=== PATIENT | female | born 1995 | race Caucasian/White ===

== ENCOUNTER → 2017-11-30 | Outpatient (CLI) | payer OTHER ==
--- NOTE | 2017-11-30 11:31 | USB ---
Reason for exam: clinical finding. History: Taking hormonal contraceptives for 2 years. Indicated problem(s): palpable abnormality in the right breast. Physical Findings: Nurse Summary: right breast 1 o'clock at nipple 1 x 1.5cm, tender, movable, 1 o'clock 1 x 1cm, movable, tender (nurse ts). US Breast RT Right complete breast ultrasound includes all four quadrants, the retroareolar region and axilla. Finding demonstrates a 1.3 x 0.8 x 1.2cm oval, solid, hypoechoic lesion at 2 o'clock BB and a 1.7 x 1.0 x 1.7cm oval, solid, hypoechoic lesion at the posterior nipple BB. 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 These results were verbally communicated with the patient and result sheet given to the patient on 11/30/17. ASSESSMENT: Suspicious, BI-RAD 4 RECOMMENDATION: Surgical consultation of the right breast. To consider surgical excision. Otherwise, clinical determination can be made for follow up versus core biopsy. Called with mammographic findings and has scheduled an appointment for the patient for 12/01/17 at 2:[address] Curiel. PRELIMINARY REPORT CALLED AND FAXED TO DR. CURIEL ON 11/30/17.
== END | disposition home or self-care (01) ==
LOC: RADUSWWP 08:50
PROVIDERS: ATTEND Surgery
DX: N63.10 Unspecified lump in the right breast, unspecified quadrant (principal)

== ENCOUNTER → 2017-12-19 | Day surgery (SDC) | payer OTHER ==
[2017-12-19 11:52] VITALS: RESP 16; BMI 21.2
[2017-12-19 13:38] VITALS: BP 99/56; PULSE 52; TEMP 98.6
--- NOTE | 2017-12-19 15:19 | USB ---
EXAMINATION TYPE: US biopsy breast VAD RT DATE OF EXAM: 12/19/2017 CLINICAL HISTORY: N63 Breast lump or mass. TECHNIQUE: Ultrasound guided core biopsy of right breast. COMPARISON: 11/30/2017 FINDINGS: The procedure of ultrasound guided core biopsy was explained to the patient. Benefits, alternatives, and risks were discussed. An informed consent was then obtained. Preprocedural timeout was performed The patient was placed in supine positioning for imaging and for the procedure. The overlying skin was prepped and draped in usual sterile fashion. Lidocaine buffered with bicarbonate was used as anesthetic into the skin and subcutaneous tissue up to the 1.3 x 0.8 x 1.2 cm solid mass at the 2:00 position in the region of the palpable abnormality. The adjacent 1.7 x 1.0 x 1.7 cm retroareolar mass was not biopsied due to its similar echogenicity and morphology. Recommendations for this mass will be made at the time of pathologic /radiologic correlation. Under ultrasound guidance, a 12-gauge vacuum assisted biopsy gun device was used to obtain 3 core samples. A biopsy marker was not left in this mass as it is easily palpable and seen sonographically at the 2:00 position. The patient tolerated the procedure well without any immediate complication. The patient was kept in the radiology department for short stay after the procedure and then discharged home in stable condition. IMPRESSION: Successful, uncomplicated ultrasound guided core biopsy of the 1.3 cm solid mass at the 2:00 position (likely fibroadenoma), full pathology results to follow. Recommendation for the retroareolar mass will be made upon radiologic/pathologic correlation. Pathology Results: Benign RIGHT BREAST LUMP, NEEDLE CORE BIOPSY: Benign breast parenchyma with fibroadenomatoid and fibrocystic changes. Recommendation Follow up ultrasound of the right breast in 6 months. RAFFID
== END | disposition home or self-care (01) ==
LOC: RADUSWWP 11:20
PROVIDERS: ATTEND Surgery
DX: D24.1 Benign neoplasm of right breast (principal); N60.11 Diffuse cystic mastopathy of right breast
CPT/HCPCS: 88305; 19083; J2001

== ENCOUNTER 2020-10-17 11:39 | Emergency (ER) | payer SELFPAY ==
[2020-10-17 11:57] VITALS: BP 112/70; PULSE 83; RESP 16; TEMP 98.4
[2020-10-17] MEDS ORDERED: Rhogam IMMUNE GLOBULIN 1,500 UNIT/1 ML IM ONE (14:10)
--- NOTE | 2020-10-17 14:18 | ED ---
Recheck HPI - General Chief Complaint: Recheck/Abnormal Lab/Rx Stated Complaint: 6wks preg, rhogam shot Time Seen by Provider: 10/17/20 14:04 Source: patient Mode of arrival: ambulatory Limitations: no limitations - History of Present Illness Initial Comments: Patient is a 25-year-old female presenting to emergency Department requesting a RhoGAM injection. Patient states she is currently 6 weeks , was evaluated 2 days ago at another hospital in [place], and was called yesterday stating that her blood type was not checked and she knows she is AB- and they need her to get a Rhogam injection. 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 This is the patient's first . Patient states the vaginal bleeding has been worked up and resolved this morning. She is not having any abdominal pain today, no chest pain or shortness of breath. No fevers or chills. She denies any dysuria. She has no further complaints at this time. - Related Data Home Medications Medication Instructions Recorded Confirmed Non Formulary Drug 1 each PO DAILY 12/05/17 12/19/17 Allergies Allergy/AdvReac Type Severity Reaction Status Date / Time No Known Allergies Allergy Verified 10/17/20 11:53 Review of Systems ROS Statement: Those systems with pertinent positive or pertinent negative responses have been documented in the HPI. ROS Other: All systems not noted in ROS Statement are negative. Past Medical History Past Medical History: No Reported History History of Any Multi-Drug Resistant Organisms: None Reported Past Surgical History: No Surgical Hx Reported Past Anesthesia/Blood Transfusion Reactions: No Reported Reaction Past Psychological History: No Psychological Hx Reported Smoking Status: Never smoker Past Alcohol Use History: None Reported Past Drug Use History: None Reported General Exam - General Exam Comments Initial Comments: GENERAL: Patient is well-developed and well-nourished. Patient is nontoxic and in no acute distress. HEAD: Atraumatic, normocephalic. EYES: Pupils equal round and reactive to light, extraocular movements intact, sclera anicteric, conjunctiva are normal. Eyelids were unremarkable. ENT: TMs normal, nares patent, oropharynx clear without exudates. Moist mucous membranes. NECK: Normal range of motion, supple without lymphadenopathy or JVD. LUNGS: Unlabored respirations. Breath sounds clear to auscultation bilaterally and equal. No wheezes rales or rhonchi. HEART: Regular rate and rhythm without murmurs, rubs or gallops. ABDOMEN: Soft, nontender, normoactive bowel sounds. No guarding, no rebound. No masses appreciated. : Deferred MUSCULOSKELETAL: Normal extremities with adequate strength and normal range of motion, no pitting or edema. No clubbing or cyanosis. NEUROLOGICAL: Patient is alert and oriented x 3. Motor and sensory are also intact. Cranial nerves II through XII grossly intact. Symmetrical smile. Normal speech, normal gait. PSYCH: Normal mood, normal affect. SKIN: Warm, Dry, normal turgor, no rashes or lesions noted. Limitations: no limitations Course Vital Signs 10/17/20 11:53 Temperature 98.4 F Pulse Rate 83 Respiratory 16 Rate Blood Pressure 112/70 O2 Sat by Pulse 100 Oximetry Medical Decision Making - Medical Decision Making Patient is a 25-year-old female here requesting a Rhogam injection. Patient sta michael she was evaluated at a hospital in [place] for vaginal bleeding, she is currently 6 weeks . She states that bleeding has resolved but the hospital called her stating that she needs to get a Rhogam injection. She works as a traveling nurse. Her blood type is AB-. Patient's blood type was confirmed today, she did receive RhoGAM injection. She is stable for discharge. She'll follow-up with her CLIENT RENEWAL SPECIALIST. Case discussed with Dr. Messina. - Lab Data Lab Results 10/17/20 10/17/20 Range/Units 14:20 14:20 Blood Type AB Negative Blood Type Confirm AB Negative Blood Type Recheck No Previous Record Bld Type Recheck Status CABO Indicated Antibody Screen NEGATIVE Spec Expiration Date 10/20/20202319 Disposition Clinical Impression: Vaginal bleeding during Disposition: HOME SELF-CARE Condition: Stable Instructions (If sedation given, give patient instructions): Normal Exam (ED) Additional Instructions: Please return to the Emergency Department if symptoms worsen or any other concerns. Follow-up with your CLIENT RENEWAL SPECIALIST. Is patient prescribed a controlled substance at d/c from ED?: No Referrals: Lemuel Muñoz DO [Primary Care Provider] - 1-2 days
== END 2020-10-17 16:11 | disposition home or self-care (01) ==
LOC: EC 11:39
DX: Z29.13 Encounter for prophylactic Rho(D) immune globulin (principal); O20.9 Hemorrhage in early pregnancy, unspecified; Z3A.01 Less than 8 weeks gestation of pregnancy
CPT/HCPCS: 86900; 86901; 86850; 99283; 96372; J2791

== ENCOUNTER → 2021-01-14 | Outpatient (CLI) | payer OTHER ==
--- NOTE | 2021-01-14 17:30 | US ---
EXAMINATION TYPE: US OB anatomy transabd DATE OF EXAM: 01/14/2021 COMPARISON: NONE HISTORY: Z36 Encounter for screening of mother TECHNIQUE: Transabdominal (TA) EXAM MEASUREMENTS: GESTATIONAL AGE / DATING GESTATIONAL AGE / DATING Physician Established: (19 weeks/4 days) EDC: 06-06-21 Dates by LMP: unknown Dates by First Scan: not available Dates by Current Scan: (19 weeks/6 days) EDC: 06-04-21 Beta HCG (if available): SURVEY IUP: Single PLACENTA: Posterior PREVIA: No Previa DINH: 11.4 cm CERVICAL LENGTH (transabdominal: norm > 3.0cm): 3.0 cm BIOMETRY PRESENTATION: Vertex BPD: 4.6 cm 19 weeks / 6 days HC: 17.5 cm 20 weeks / 1 days AC: 13.9 cm 19 weeks / 3 days FL: 3.1 cm 19 weeks / 5 days ESTIMATED WEIGHT IN GRAMS: 299 grams ESTIMATED WEIGHT IN LBS/OZ: 0 lbs. 11 oz. HC/AC: 1.26 FL/AC: 22% HEART RATE: 149 bpm RHYTHM: Normal ANATOMY SEEN (within normal limits): * Lateral Vent (< 1 cm) 0.7 cm * Cisterna Magna (< 1.1 cm) 0.4 cm * Nuchal Fold (< 0.6 cm) 0.4 cm * Cerebellum (varies with age) 1.8 cm Choroid Plexus (bilateral) Midline Falx Cavus Septi Pellucidi Four Chamber Heart Outflow tracts: LVOT/RVOT Stomach Situs Nose / Lips Diaphragm Kidneys (bilateral) Cord Insert Longitudinal Spine Transverse Spine Arms (bilateral) Legs (bilateral) ANATOMY NOT SEEN: Bladder-not seen during entire study Three Vessel Cord Patient scheduled to come back for anatomy not seen. IMPRESSION: 1. Single intrauterine with an average ultrasound gestational age of 19 weeks and 6 days. P lacenta is posterior. Cervical length is 3 cm. presentation is cephalic. heart rate is 14 9 bpm. 2. The urinary bladder is not visualized during the study, 3 vessel cord is not visualized during thi s study. Repeat evaluation is recommended.
== END | disposition home or self-care (01) ==
LOC: RADUSWWP 14:14
PROVIDERS: ATTEND Obstetrics & Gynecology
DX: Z36.87 Encounter for antenatal screening for uncertain dates (principal)
CPT/HCPCS: 76811

== ENCOUNTER → 2021-01-16 | Outpatient (CLI) | payer OTHER ==
--- NOTE | 2021-01-18 22:04 | US ---
EXAMINATION TYPE: US OB Call Back DATE OF EXAM: 01/16/2021 COMPARISON: A rescan for the original survey performed on 01/14/2021 CLINICAL HISTORY: 25-year-old female CALL BACK. GESTATIONAL AGE / DATING Dates by Initial Survey Scan: (20 weeks/1 days) EDC: 06/06/2021 HEART RATE: 163 bpm RHYTHM: Normal ANATOMY SEEN (second anatomic survey look): Bladder: wnl Three-vessel CORD: wnl IMPRESSION: Original survey performed on 01/14/2021. This particular rescan is for 2 structures only, the fe anjel bladder and three-vessel cord. The bladder is visualized. 2 umbilical arteries are seen coursing on either side of the bladder which would be in keeping with a 3 vessel cord. Therefore, both of thes e structures are visualized and appear normal.
== END | disposition home or self-care (01) ==
LOC: RADUSWWP 16:14
PROVIDERS: ATTEND Obstetrics & Gynecology
DX: Z53.9 Procedure and treatment not carried out, unspecified reason (principal)

== ENCOUNTER 2021-05-25 06:00 | Inpatient (IN) | payer OTHER ==
[2021-05-25] MEDS ORDERED: fentaNYL (PF) 50 MCG/ML 5 ML AMP ONE (06:40)
[2021-05-25] MEDS ORDERED: SODIUM CHLORIDE 0.9% 100 ML BAG ONE (06:40)
[2021-05-25] MEDS ORDERED: ROPIVACAINE 5MG/ML 20ML VIAL ONE (06:40)
[2021-05-25] MEDS ORDERED: BUTORPHANOL 1 MG/ML 1 ML VIAL IV PRN (16:16)
[2021-05-25] MEDS ORDERED: DINOPROSTONE 10 MG INSERT.ER VAGINAL ONE (16:30)
--- NOTE | 2021-05-25 17:12 | P.HPOB ---
History of Present Illness H&P Date: 05/25/21 Chief Complaint: Intrauterine growth restriction This patient is a pleasant 26-year-old 1 para 0 female estimated date of confinement 06/06/2021 estimated gestational age 38-2/7 weeks which is confirmed by a first trimester ultrasound who presents to labor and delivery for two-stage induction of labor secondary to an unfavorable cervix and intrauterine growth restriction. History is such that patient had a growth ultrasound done at 35- 1/2 weeks and estimated weight was approximately 10th percentile. Patient was referred to maternal- medicine and they had estimated weight at the 9th percentile and recommendations were to proceed with delivery between 38 and 39 weeks. Patient's had biophysical profiles weekly and biweekly nonstress tests. Patient's cervix is unfavorable and now is presenting for delivery. 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 I did look at documentation and her due date is set by early first trimester ultrasound. Review of Systems Genitourinary: Reports Menstruation: Reports amenorrhea Past Medical History Past Medical History: No Reported History History of Any Multi-Drug Resistant Organisms: None Reported Past Surgical History: No Surgical Hx Reported Past Anesthesia/Blood Transfusion Reactions: No Reported Reaction Past Psychological History: No Psychological Hx Reported Smoking Status: Never smoker Past Alcohol Use History: None Reported Past Drug Use History: None Reported - Past Family History Father Family Medical History: No Reported History Medications and Allergies Home Medications Medication Instructions Recorded Confirmed Type RX: Non Formulary Drug 1 each PO DAILY 12/05/17 05/25/21 History Allergies Allergy/AdvReac Type Severity Reaction Status Date / Time No Known Allergies Allergy Verified 05/25/21 16:15 Exam Vital Signs Temp Pulse Resp BP Pulse Ox 05/25/21 16:34 98.5 F 83 16 115/71 05/25/21 16:26 98.5 F 83 16 115/71 98 Intake and Output 05/25/21 05/25/21 05/25/21 06:59 14:59 22:59 Other: Weight 62.142 kg - OBG Physical Exam Abdomen: bowel sounds normal, no diffuse tenderness, no bruit present, no guarding noted, no hepatomegaly, no splenomegaly, no mass Vulva: both: normal Vagina: normal moisture, no discharge Cervix: no lesion, no discharge Uterus: enlarged (Fundal height 36 cm) Results blood work shows she is AB-, rubella immune, RPR nonreactive, hepatitis B negative, group B strep was negative, Glucola was 131, patient did receive RhoGAM in the first trimester secondary to some bleeding. Most recent u ltrasound at maternal medicine showed vertex 5 lbs. 0 oz. at the 9th percentile Assessment and Plan Assessment: This is a pleasant 26-year-old 1 para 0 female 38-2/7 week intrauterine with intrauterine growth restriction and maternal- medicine recommending proceed with delivery at this time. Patient has an unfavorable cervix and therefore will need to proceed with two-stage induction with Cervidil. I discussed the patient's diagnosis and induction process in detail and she wishes to proceed. (1) 38 weeks gestation of Current Visit: Yes Status: Acute Code(s): Z3A.38 - 38 WEEKS GESTATION OF SNOMED Code(s): 10511104 (2) IUGR (intrauterine growth restriction) Current Visit: Yes Status: Acute Code(s): CXB2797 - SNOMED Code(s): 93961905 (3) Rh negative state in antepartum period Current Visit: Yes Status: Acute Code(s): O26.899 - OTH RELATED CONDITIONS, UNSPECIFIED TRIMESTER; Z67.91 - UNSPECIFIED BLOOD TYPE, RH NEGATIVE SNOMED Code(s): 096278538
[2021-05-26] MEDS: LACTATED RINGERS 1,000 ML IV SCH ×2 (05:50→07:03)
[2021-05-26] MEDS ORDERED: TERBUTALINE 1 MG/ML VIAL SQ PRN (05:52)
[2021-05-26] MEDS ORDERED: METHYLERGONOVINE 0.2 MG/ML 1 ML AMP IM PRN (05:52)
[2021-05-26] MEDS ORDERED: LIDOCAINE 0.5% (PF) 5 MG/ML (50 ML SDV) SQ PRN (05:52)
[2021-05-26] MEDS ORDERED: OXYTOCIN 30 UNITS/500 ML NS 30 UNIT in SALINE 1 500ML.BAG IV SCH ×2 (05:52→10:57)
[2021-05-26] MEDS ORDERED: CARBOPROST TROMETHAMINE 250 MCG/ML 1 ML AMP IM PRN (05:52)
[2021-05-26] MEDS ORDERED: OXYTOCIN 10 UNIT/ML 1 ML VIAL IM PRN (05:52)
[2021-05-26 06:29] LABS: Basophils # (A) 0.1 k/uL (0-0.2); Basophils % (A) 0 %; Eosinophils # (A) 0.1 k/uL (0-0.7); Eosinophils % (A) 1 %; HCT 36.8 % (34.0-46.0); HGB 12.7 gm/dL (11.4-16.0); Lymphocytes # (A) 1.9 k/uL (1.0-4.8); Lymphocytes % (A) 15 %; MCH 32.4 pg (25.0-35.0); MCHC 34.6 g/dL (31.0-37.0); MCV 93.6 fL (80.0-100.0); Mean Platelet Volume 9.3; Monocytes # (A) 0.7 k/uL (0-1.0); Monocytes % (A) 5 %; Neutrophils # (A) 9.7 k/uL (1.3-7.7); Neutrophils % (A) 77 %; Platelet Count 138 k/uL (150-450); RBC 3.93 m/uL (3.80-5.40); WBC 12.6 k/uL (3.8-10.6)
[2021-05-26] MEDS ORDERED: fentaNYL (PF) 50 MCG/ML 5 ML AMP ONE (06:40)
[2021-05-26] MEDS ORDERED: SODIUM CHLORIDE 0.9% 100 ML BAG ONE (06:40)
[2021-05-26] MEDS ORDERED: ROPIVACAINE 5MG/ML 20ML VIAL ONE (06:40)
[2021-05-26] MEDS ORDERED: bisacodyL 10 MG SUPP RECTAL PRN (10:57)
[2021-05-26] MEDS ORDERED: ZOLPIDEM 5 MG TAB PO PRN (10:57)
[2021-05-26] MEDS ORDERED: SIMETHICONE 80 MG CHEWABLE PO PRN (10:57)
[2021-05-26] MEDS ORDERED: HYDROCORTISONE 2.5% RECTAL CREAM 30 GM TUBE RECTAL PRN (10:57)
[2021-05-26] MEDS ORDERED: BENZOCAINE/MENTHOL SPRAY 1 GM/SPRAY AEROSOL TOPICAL PRN (10:57)
[2021-05-26] MEDS ORDERED: Rhogam IMMUNE GLOBULIN 1,500 UNIT/1 ML IM ONE (10:57)
[2021-05-26] MEDS ORDERED: ACETAMINOPHEN TAB 325 MG TAB PO PRN (10:57)
[2021-05-26] MEDS ORDERED: LANOLIN CREAM 5 GM TUBE TOPICAL PRN (10:57)
[2021-05-26] MEDS ORDERED: diphenhydrAMINE 25 MG CAP PO PRN (10:57)
[2021-05-26] MEDS ORDERED: diphenhydrAMINE 50 MG/ML 1 ML VIAL IVP PRN (10:57)
[2021-05-26] MEDS: SENNOSIDES-DOCUSATE SODIUM 1 EACH TAB PO SCH ×2 (11:25→20:01)
[2021-05-26] MEDS: IBUPROFEN 600 MG TAB PO PRN (11:37)
[2021-05-26] MEDS ORDERED: ONDANSETRON 4 MG/2 ML VIAL IVP STA (12:25)
--- NOTE | 2021-05-26 12:48 | P.PROBDLV ---
Vaginal Delivery Note - . Vaginal Delivery Note: Normal vaginal delivery viable female Apgars 9 and 9 delivery time 1046 hrs. Please see dictated H&P for intimate details of this patient's admission. Brief summary this is a pleasant 26-year-old 1 para 0 female 38-3/7 weeks gestation is admitted to labor and delivery for induction of labor secondary to intrauterine growth restriction. Patient admitted last evening given Cervidil.'s morning patient is 2-3 cm dilated has artificial rupture membranes for clear fluid. Labor progresses quickly thereafter she does get 1 dose of Stadol and then an epidural for pain control. Patient gets to complete pushes for approximately 1 hour and 20 minutes. Patient pushes the head to the perineum and the posterior perineum is supported. We have controlled delivery of infant's head over the intact perineum. Mouth and nares are bulb suctioned. is straight occiput anterior presentation. There is a loose nuchal cord which is reduced. With gentle downward traction we then have deliver the anterior and posterior shoulder and rest this 's body. This is a vigorous viable female infant Apgars are 9 and 9 delivery time 1046 hrs. has spontaneous respiration and good cry and grossly appears normal. After delivery of the infant the umbilical cord is allowed quit pulsating is then doubly clamped and cut. The placenta is then spontaneously delivered intact. Inspection of perineum shows a second-degree laceration which is repaired with 3-0 Vicryl in the usual fashion. Excellent reapproximation is noted. There is also bilateral labial lacerations that are superficial and these are hemostatic and therefore no sutures are placed. Estimated blood loss is approximately 350 mL. There are no complications. All counts are correct 3. and mother are stable in delivery room.
[2021-05-26] MEDS ORDERED: ONDANSETRON 4 MG/2 ML VIAL IVP PRN (12:54)
[2021-05-27 00:13] VITALS: RESP 16
[2021-05-27] MEDS: IBUPROFEN 600 MG TAB PO PRN (02:01)
--- NOTE | 2021-05-27 06:27 | P.PNOBGVD ---
Subjective - Subjective Patient reports: Reports appetite normal, Reports voiding normally, Reports pain well controlled, Reports ambulating normally : doing well Objective - Latest Vital Signs Latest vital signs: Vital Signs Temp Pulse Resp BP Pulse Ox 05/26/21 23:45 98.1 F 67 16 117/77 98 05/26/21 20:00 98.2 F 63 18 127/78 97 05/26/21 16:00 98.1 F 71 16 114/76 98 05/26/21 12:53 97.6 F 61 16 108/69 05/26/21 12:23 97.8 F 61 16 109/64 05/26/21 11:53 70 16 115/66 05/26/21 11:38 70 16 117/70 05/26/21 11:23 77 16 127/71 05/26/21 11:08 77 16 116/65 05/26/21 10:53 97.8 F 82 16 127/68 Intake and Output 05/26/21 05/26/21 05/27/21 14:59 22:59 06:59 Intake Total 2.817 Balance 2.817 Intake: Intake, IV Titration 2.817 Amount Oxytocin 30 Units/500 ml 2.817 Ns 30 unit In Saline 1 500ml.bag @ Per Protocol IV .Q0M [facility] Rx#:[id number] Other: # Voids 1 1 1 - Exam Lungs: bilateral: normal Chest: Normal S1, Normal S2 Extremities: Present: normal Abdomen: Present: normal appearance, soft Uterus: Present: normal, firm - Labs Labs: Abnormal Lab Results - Last 24 Hours (Table) 05/26/21 Range/Units 05:55 WBC 12.6 H (3.8-10.6) k/uL Plt Count 138 L (150-450) k/uL Neutrophils # 9.7 H (1.3-7.7) k/uL Assessment and Plan Assessment: day #1. Patient is resting without complaints and wishes to go home. Vital signs are stable she is afebrile. Uterus is firm nontender she's having normal lochia. My impression this is a normal course. Plan is to continue routine care discharge home later today. (1) 38 weeks gestation of Current Visit: Yes Status: Acute Code(s): Z3A.38 - 38 WEEKS GESTATION OF SNOMED Code(s): 87927455 (2) IUGR (intrauterine growth restriction) Current Visit: Yes Status: Acute Code(s): EEP7938 - SNOMED Code(s): 90226180 (3) Rh negative state in antepartum period Current Visit: Yes Status: Acute Code(s): O26.899 - OTH RELATED CONDITIONS, UNSPECIFIED TRIMESTER; Z67.91 - UNSPECIFIED BLOOD TYPE, RH NEGATIVE SNOMED Code(s): 191290950
--- NOTE | 2021-05-27 06:32 | P.DS ---
Providers Date of admission: 05/25/21 15:59 Expected date of discharge: 05/27/21 Attending physician: Mark Delgado Primary care physician: Stated None - Discharge Diagnosis(es) (1) 38 weeks gestation of Current Visit: Yes Status: Acute (2) IUGR (intrauterine growth restriction) Current Visit: Yes Status: Acute (3) Rh negative state in antepartum period Current Visit: Yes Status: Acute Hospital Course: Please see dictated H&P for intimate details of this patient's admission. Brief summary this is a pleasant 26-year-old 1 para 0 female 38-3/7 weeks gestation admitted for two-stage induction of labor secondary to intrauterine growth restriction an unfavorable cervix. Patient is admitted has uncomplicated two-stage induction of labor quickly goes on have a vaginal delivery viable female . Please see dictated delivery note. day #1 patient is doing well wishes to go home. Patient's felt be stable for discharge home follow up with me in 6 weeks. Procedures: Induction of labor and normal vaginal delivery Patient Condition at Discharge: Good Plan - Discharge Summary New Discharge Prescriptions: New Ibuprofen [Motrin] 600 mg PO Q6HR PRN #30 tab PRN Reason: Pain No Action Non Formulary Drug 1 each PO DAILY Discharge Medication List Non Formulary Drug 1 each PO DAILY 12/05/17 [History] Ibuprofen [Motrin] 600 mg PO Q6HR PRN #30 tab 05/27/21 [Rx] Follow up Appointment(s)/Referral(s): Mark Delgado MD [STAFF PHYSICIAN] - 6 Weeks Patient Instructions/Handouts: Vaginal Delivery (DC) Activity/Diet/Wound Care/Special Instructions: No intercourse or anything per vagina for 6 weeks. Please call if any fever, chills, excessive vaginal bleeding, and/or abdominal pain. Discharge Disposition: HOME SELF-CARE
[2021-05-27 08:57] VITALS: BP 115/72; PULSE 91; TEMP 98.3
[2021-05-27] MEDS: SENNOSIDES-DOCUSATE SODIUM 1 EACH TAB PO SCH (09:12)
== END 2021-05-27 13:10 | disposition home or self-care (01) | DRG 807 ==
LOC: 4FBP 15:59
PROVIDERS: ADMIT Obstetrics & Gynecology; ATTEND Obstetrics & Gynecology
DX: O36.5930 Maternal care for other known or suspected poor fetal growth, third trimester, not applicable or unspecified (principal); Z37.0 Single live birth; O26.893 Other specified pregnancy related conditions, third trimester; O69.81X0 Labor and delivery complicated by cord around neck, without compression, not applicable or unspecified; O70.1 Second degree perineal laceration during delivery; Z3A.38 38 weeks gestation of pregnancy; Z67.31 Type AB blood, Rh negative; Z79.899 Other long term (current) drug therapy
CPT/HCPCS: 85025; 85461; 86850; 86870; 86880; 86900; 86901

== ENCOUNTER → 2023-11-09 | Outpatient (CLI) | payer OTHER | END | disposition home or self-care (01) | LOC: LABWHC1 10:37 | PROVIDERS: ATTEND Obstetrics & Gynecology Obstetrics | DX: Z34.83 Encounter for supervision of other normal pregnancy, third trimester (principal); Z3A.00 Weeks of gestation of pregnancy not specified | CPT/HCPCS: 86850; 86900; 86901 ==

== ENCOUNTER → 2024-01-30 | Outpatient (CLI) | payer OTHER ==
[2024-01-30 15:44] VITALS: BP 123/83; PULSE 81; RESP 16; TEMP 98.4
--- NOTE | 2024-02-10 09:38 | P.MSEPDOC ---
Presenting Problems - Arrival Data Date of Arrival on Unit: 01/30/24 Time of Arrival on Unit: 14:08 Mode of Transport: Ambulatory - Complaint OB-Reason for Admission/Chief Complaint: Possible Onset of Labor Medical History - Information : 2 Para: 1 Term: 1 : 0 Abortions: Spontaneous or Elective: 0 Number of Living Children: 1 - Gestational Age Gestational Age by SOILA (wks/days): 39 Weeks and 5 Days Review of Systems - Review of Systems Constitutional: No problems Breast: No problems ENT: No problems Cardiovascular: No problems Respiratory: No problems Gastrointestinal: No problems Genitourinary: No problems Musculoskeletal: No problems Neurological: No problems Skin: No problems Vital Signs - Temperature Temperature: 98.4 F Temperature Source: Temporal Artery Scan - Pulse Right Brachial Pulse Rate: 81 Pulse Assessment Method: Automatic Cuff - Respirations Respiratory Rate: 16 Oxygen Delivery Method: Room Air O2 Sat by Pulse Oximetry: 99 - Blood Pressure Right Arm Blood Pressure: 123/83 Blood Pressure Mean: 96 Blood Pressure Source: Automatic Cuff Medical Screen Scoring - Cervical Exam Dilation (cm): 3 Effacement (%): 70 Station: -2 Membranes: Intact - Assessment - Baby A Baseline FHR: 125 Heart Rate - NICHD Category: Category I (Normal) NST: Reactive Physician Notification - Physician Notified Physician Notified Date: 01/30/24 Physician Notified Time: 15:21 Physician: Haydee Kay New Order Received: Yes - Notification Comment Comment: Dr. Kay in dept and report given on pt. Pt c/o. VS WNL. Reactive NST. Irregular contractions noted. Pt appears comfortable. Vag exam of 370/-2 with no cheung in vag exam after 1 hour. Orders recieved to d/c home with normal labor precautions. Maternal Triage Index - Urgent/Priority 2 Urgent Priority 2: Yes Provider Notified: Haydee Kay Provider Notified Time: 15:21 Criteria Met for Priority 2: Pt c/o of irregular contractions that started at 2200 7/14. Pt reports contractions are similar to mild period cramps. Disposition - Disposition OB Disposition: Discharge to home Discharge Date: 01/30/24 Discharge Time: 15:30 I agree with the RN Medical Screening Exam: Yes Case reviewed; plan agreed upon as documented in EMR&OBIX.: Yes Diagnosis: FALSE LABOR AT OR AFTER 37 COMPLETED WEEKS OF GESTATION
== END ==
LOC: FBPOP 14:08
PROVIDERS: ATTEND Obstetrics & Gynecology Obstetrics
DX: O47.1 False labor at or after 37 completed weeks of gestation (principal); Z3A.39 39 weeks gestation of pregnancy
CPT/HCPCS: 59025; G0463; 99213

== ENCOUNTER 2024-02-01 05:50 | Inpatient (IN) | payer OTHER ==
[2024-02-01] MEDS ORDERED: OXYTOCIN 10 UNIT/ML 1 ML VIAL IM PRN (06:01)
[2024-02-01] MEDS ORDERED: TERBUTALINE 1 MG/ML VIAL SQ PRN (06:01)
[2024-02-01] MEDS ORDERED: METHYLERGONOVINE 0.2 MG/ML 1 ML AMP IM PRN (06:01)
[2024-02-01] MEDS ORDERED: miSOPROStoL 200 MCG TAB RECTAL PRN (06:01)
[2024-02-01] MEDS ORDERED: LIDOCAINE 0.5% (PF) 5 MG/ML (50 ML SDV) SQ PRN (06:01)
[2024-02-01] MEDS ORDERED: CARBOPROST TROMETHAMINE 250 MCG/ML 1 ML AMP IM PRN (06:01)
[2024-02-01] MEDS ORDERED: miSOPROStoL 200 MCG TAB PO PRN (06:01)
[2024-02-01] MEDS ORDERED: TRANEXAMIC 1,000 MG/100ML-NACL 1,000 MG in EMPTY BAG 1 BAG IV PRN (06:01)
[2024-02-01] MEDS: LACTATED RINGERS 1,000 ML IV SCH (06:19)
[2024-02-01] MEDS: OXYTOCIN 30 UNITS/500 ML NS 30 UNIT in SALINE 1 500ML.BAG IV SCH (06:51)
[2024-02-01 07:10] LABS: Basophils % (A) 0 %; Eosinophils # (A) 0.1 k/uL (0-0.7); Eosinophils % (A) 1 %; HCT 38.2 % (34.0-46.0); HGB 12.5 gm/dL (11.4-16.0); Lymphocytes # (A) 2.5 k/uL (1.0-4.8); Lymphocytes % (A) 29 %; MCH 32.2 pg (25.0-35.0); MCHC 32.9 g/dL (31.0-37.0); MCV 98.1 fL (80.0-100.0); Mean Platelet Volume 9.2; Monocytes # (A) 0.5 k/uL (0-1.0); Monocytes % (A) 6 %; Neutrophils # (A) 5.5 k/uL (1.3-7.7); Neutrophils % (A) 62 %; Platelet Count 148 k/uL (150-450); RBC 3.89 m/uL (3.80-5.40); RDW 13.6 % (11.5-15.5); WBC 8.9 k/uL (3.8-10.6)
[2024-02-01] MEDS ORDERED: ZOLPIDEM 5 MG TAB PO PRN (11:48)
[2024-02-01] MEDS ORDERED: HYDROCORTISONE 2.5% RECTAL CREAM 30 GM TUBE RECTAL PRN (11:48)
[2024-02-01] MEDS ORDERED: diphenhydrAMINE 50 MG CAP PO PRN (11:48)
[2024-02-01] MEDS ORDERED: ACETAMINOPHEN TAB 325 MG TAB PO PRN (11:48)
[2024-02-01] MEDS ORDERED: diphenhydrAMINE 25 MG CAP PO PRN (11:48)
[2024-02-01] MEDS ORDERED: LANOLIN CREAM 1 GM TUBE TOPICAL PRN (11:48)
[2024-02-01] MEDS ORDERED: SIMETHICONE 80 MG CHEWABLE PO PRN (11:48)
[2024-02-01] MEDS ORDERED: diphenhydrAMINE 50 MG/ML 1 ML VIAL IVP PRN ×2 (11:48)
--- NOTE | 2024-02-01 11:48 | P.HPOB ---
History of Present Illness H&P Date: 02/01/24 Chief Complaint: IUP at 40 and 0 28-year-old G2, P1 at 40-0/7 weeks that presents for induction of labor. Patient has been receiving routine care with myself which has been essentially uncomplicated. Patient did have an ultrasound this week revealing an amniotic fluid index of 8. Patient notes good movement denies contractions vaginal bleeding or loss of fluid. blood work this patient is a blood type AB-, rubella status immune, hepatitis B surface engine negative, HIV negative, RPR nonreactive, grew beta strep culture negative. Review of Systems Constitutional: Denies chills, Denies fatigue, Denies fever Ears, nose, mouth and throat: Denies headache Cardiovascular: Reports leg edema Respiratory: Denies dyspnea Gastrointestinal: Denies nausea, Denies vomiting Genitourinary: Reports Past Medical History Past Medical History: No Reported History History of Any Multi-Drug Resistant Organisms: None Reported Past Surgical History: No Surgical Hx Reported Past Anesthesia/Blood Transfusion Reactions: No Reported Reaction Past Psychological History: No Psychological Hx Reported Smoking Status: Never smoker Past Alcohol Use History: None Reported Past Drug Use History: None Reported - Past Family History Father Family Medical History: No Reported History Medications and Allergies Home Medications Medication Instructions Recorded Confirmed Type Vit No.179/Iron/Folic 1 tab PO ONCE 01/30/24 01/30/24 History [ Tablet] Allergies Allergy/AdvReac Type Severity Reaction Status Date / Time No Known Allergies Allergy Verified 01/30/24 14:29 Exam Osteopathic Statement: *. No significant issues noted on an osteopathic structural exam other than those noted in the History and Physical/Consult. Vital Signs Temp Pulse Resp BP Pulse Ox 02/01/24 06:01 98.9 F 87 16 110/67 99 Intake and Output 01/31/24 02/01/24 02/01/24 22:59 06:59 14:59 Other: Weight 63.503 kg Targeted physical exam is performed this date in general this is a well nourished well-developed female in no acute distress, breathing is nonlabored, heart has a regular rate and rhythm, abdomen is gravid, on cervical exam she is 4/80/-2 station amniotomy is performed and clear fluid was obtained. heart tones are noted to be category 1 and she is tatianna irregularly. Results Result Diagrams: 02/01/24 06:18 Abnormal Lab Results - Last 24 Hours (Table) 02/01/24 Range/Units 06:18 Plt Count 148 L (150-450) k/uL Assessment and Plan (1) Term Current Visit: Yes Status: Acute Code(s): Z34.90 - ENCNTR FOR SUPRVSN OF NORMAL , UNSP, UNSP TRIMESTER SNOMED Code(s): 02668183 (2) Rh negative state in antepartum period Current Visit: No Status: Acute Code(s): O26.899 - OTH RELATED CONDITIONS, UNSPECIFIED TRIMESTER; Z67.91 - UNSPECIFIED BLOOD TYPE, RH NEGATIVE SNOMED Code(s): 381424746 Plan: 28-year-old 2 para 1 at 40-0/7 weeks presents for induction of labor. Patient is admitted and Pitocin induction of labor was begun per hospital protocol. Options for analgesia are discussed including nitrous, Nubain, epidural. Patient will consider.
--- NOTE | 2024-02-01 11:48 | P.PROBDLV ---
Vaginal Delivery Note - . Vaginal Delivery Note: 28-year-old 2 para 1 that presented to labor delivery at 40-0/7 weeks that presents to labor and delivery for induction of labor. Patient was admitted and Pitocin induction of labor was begun. Patient underwent amniotomy and clear fluid was obtained. Patient progressed through labor becoming uncomfortable and requesting epidural. Epidural was placed without difficulty by the anesthesia department. Patient made quick progress to complete dilation. Once completely dilated patient began pushing and had a normal spontaneous vaginal delivery of a viable male infant at 1126, loose nuchal was reduced on the perineum. Spontaneous cry was noted at . After 2-minute delay the umbilical cord was doubly clamped and cut and the placenta was delivered spontaneously intact with a three-vessel cord being noted. Cord blood was taken prior to delivery of the placenta. On inspection the patient's vaginal vault second-degree midline laceration was appreciated. This was repaired in the usual fashion with 3-0 Rapide. Uterus was evacuated of approximately 100 cc of clots. Bleeding slowed and the uterus was noted to be firm afterwards. Bladder was drained for approximately 200 cc of clear yellow urine. After closure of the vaginal laceration hemostasis was appreciated. All counts were to be correct x 2. Patient and infant tolerated delivery well and are resting comfortably.
[2024-02-01] MEDS: IBUPROFEN 600 MG TAB PO SCH (13:24)
[2024-02-01] MEDS: PRENATAL VIT-IRON-FOLIC ACID 1 EACH TABLET PO SCH (13:25)
[2024-02-01] MEDS: BENZOCAINE/MENTHOL SPRAY 1 GM/SPRAY AEROSOL TOPICAL PRN (13:26)
[2024-02-01 15:59] VITALS: RESP 16
[2024-02-01] MEDS: Rhogam IMMUNE GLOBULIN 1,500 UNIT/1 ML IM ONE (19:38)
[2024-02-01] MEDS: SENNOSIDES-DOCUSATE SODIUM 1 EACH TAB PO SCH (20:49)
[2024-02-02 06:41] LABS: Basophils % (A) 0 %; Eosinophils # (A) 0.2 k/uL (0-0.7); Eosinophils % (A) 1 %; HCT 32.5 % (34.0-46.0); HGB 11.2 gm/dL (11.4-16.0); Lymphocytes # (A) 2.4 k/uL (1.0-4.8); Lymphocytes % (A) 22 %; MCH 33.2 pg (25.0-35.0); MCHC 34.3 g/dL (31.0-37.0); MCV 96.6 fL (80.0-100.0); Mean Platelet Volume 9.8; Monocytes # (A) 0.6 k/uL (0-1.0); Monocytes % (A) 5 %; Neutrophils # (A) 7.6 k/uL (1.3-7.7); Neutrophils % (A) 70 %; Platelet Count 114 k/uL (150-450); RBC 3.36 m/uL (3.80-5.40); RDW 14.1 % (11.5-15.5); WBC 10.9 k/uL (3.8-10.6)
[2024-02-02 08:25] VITALS: BP 100/66; PULSE 73; TEMP 97.9
--- NOTE | 2024-02-02 12:35 | P.DS ---
Providers Date of admission: 02/01/24 05:50 Expected date of discharge: 02/02/24 Attending physician: Haydee Kay Primary care physician: Stated None - Discharge Diagnosis(es) (1) Term Current Visit: Yes Status: Acute (2) Rh negative state in antepartum period Current Visit: No Status: Acute (3) Status post vaginal delivery Current Visit: Yes Status: Acute (4) Obstetrical laceration, second degree Current Visit: Yes Status: Acute Hospital Course: 28-year-old G2,P2 that presented to labor and delivery on 01/31 for scheduled induction of labor. Patient was admitted to labor and delivery and Pitocin induction of labor was begun. Patient underwent amniotomy and clear fluid was obtained. Patient progressed through labor eventually coming uncomfortable and requesting epidural placement. Patient progressed quickly to complete began pushing and had a normal spontaneous vaginal delivery of a viable male infant at 1126, weight of 7 pounds 11 ounces. Patient did sustain a second-degree midline laceration during delivery. This was repaired in the usual fashion with 3-0 Rapide. Patient has done well . On this day #1 she is ambulating and voiding without difficulty. She is tolerating a regular diet without nausea or vomiting. States her pain is well-controlled. She denies concerns and would like discharge home later today. Patient Condition at Discharge: Good Plan - Discharge Summary New Discharge Prescriptions: No Action Vit No.179/Iron/Folic [ Tablet] 1 tab PO ONCE Discharge Medication List Vit No.179/Iron/Folic [ Tablet] 1 tab PO ONCE 01/30/24 [History] Follow up Appointment(s)/Referral(s): Haydee Kay DO [Doctor of Osteopathic Medicine] - 03/12/24 1:45 pm Patient Instructions/Handouts: Vaginal Delivery (GEN), Vaginal Delivery (DC) Activity/Diet/Wound Care/Special Instructions: No intercourse, tub baths. Call with any fever, shakes or chills, with any pain not alleviated by over the counter meds, or with any questions or concerns. [id number] ibuprofen 100 mg every 6 hours as needed for pain. Discharge Disposition: HOME SELF-CARE
== END 2024-02-02 14:30 | disposition home or self-care (01) | DRG 560 ==
LOC: 4FBP 05:50
PROVIDERS: ADMIT Obstetrics & Gynecology Obstetrics; ATTEND Obstetrics & Gynecology Obstetrics
PROC: 0KQM0ZZ Repair Perineum Muscle, Open Approach (ICD-10-PCS; principal; 2024-02-01)
PROC: 10E0XZZ Delivery of Products of Conception, External Approach (ICD-10-PCS; principal; 2024-02-01)
PROC: 3E033VJ Introduction of Other Hormone into Peripheral Vein, Percutaneous Approach (ICD-10-PCS; 2024-02-01)
PROC: 10907ZC Drainage of Amniotic Fluid, Therapeutic from Products of Conception, Via Natural or Artificial Opening (ICD-10-PCS; 2024-02-01)
PROC: 3E0234Z Introduction of Serum, Toxoid and Vaccine into Muscle, Percutaneous Approach (ICD-10-PCS; 2024-02-01)
DX: O69.81X0 Labor and delivery complicated by cord around neck, without compression, not applicable or unspecified (principal); Z37.0 Single live birth; O26.893 Other specified pregnancy related conditions, third trimester; O70.1 Second degree perineal laceration during delivery; Z3A.40 40 weeks gestation of pregnancy; Z67.31 Type AB blood, Rh negative
CPT/HCPCS: 85025; 85461; 86850; 86870; 86880; 86900; 86901